=== PATIENT | male | born 1995 | race Caucasian/White ===

== ENCOUNTER 2018-04-09 09:11 | Emergency (ER) | payer MEDICAID ==
[~2018-04-09] VITALS: Ht 243.8 cm; Wt 104.8 kg
[2018-04-09 09:17] VITALS: Ht 243.8 cm; Wt 104.8 kg
[2018-04-09 10:35] VITALS: BP 143/70
== END 2018-04-09 10:36 | disposition home or self-care (01) ==
LOC: ED 09:11
DX: J06.9 Acute upper respiratory infection, unspecified (principal)